=== PATIENT | female | born 1985 | race Caucasian/White ===

== ENCOUNTER 2018-08-19 06:17 | Emergency (ER) | payer MEDICAID, OTHER ==
[2018-08-19 08:09] LABS: URINE PH (Dip) POC 5.5 (5.0-8.5)
[2018-08-19 08:09] LABS: URINE BLOOD (Dip) POC 1+ (NEGATIVE); URINE GLUCOSE (Dip) POC Negative (NEGATIVE); URINE KETONES (Dip) POC Negative (NEGATIVE); URINE LEUKOCYTE EST (Dip) POC Negative (NEGATIVE); URINE NITRITE (Dip) POC Negative (NEGATIVE); URINE TOTAL PROTEIN POC Negative (NEGATIVE)
== END 2018-08-19 08:31 | disposition home or self-care (01) ==
LOC: FTE 08:31
DX: L98.9 Disorder of the skin and subcutaneous tissue, unspecified (principal); R10.2 Pelvic and perineal pain
CPT/HCPCS: 76856; 81003; 81025; 99284-25